=== PATIENT | male | born 1980 | race Caucasian/White ===

== ENCOUNTER 2017-09-05 06:18 | Inpatient (IN) ==
[~2017-09-05 06:18] MED LIST: DEXAMETHASONE 4 MG/1 ML VIAL IV ONE
[2017-09-05] MEDS ORDERED: FAMOTIDINE 20 MG TABLET PO ONE (07:37)
[2017-09-05] MEDS ORDERED: DIAZEPAM 5 MG TABLET PO ONE (07:38)
[2017-09-05] MEDS ORDERED: FAMOTIDINE 20 MG TABLET ONE (08:23)
[2017-09-05] MEDS ORDERED: DIAZEPAM 5 MG TABLET ONE (08:23)
[2017-09-05] MEDS ORDERED: LACTATED RINGERS 1,000 ML IV SCH (08:30)
[2017-09-05] MEDS ORDERED: MUPIROCIN 2% OINT 22 GM TUBE TOP ONE (11:01)
[2017-09-05] MEDS ORDERED: OXYMETAZOLINE 0.05% NASAL SPRAY 15 ML BOTTLE ONE (11:02)
[2017-09-05] MEDS ORDERED: LIDOCAINE 1%/EPI INJ 20 ML VIAL ONE (11:02)
[2017-09-05] MEDS ORDERED: PROPOFOL 1,000 MG/100 ML BOTTLE IV SCH (18:30)
[2017-09-05] MEDS ORDERED: ACETAMINOPHEN 500 MG TABLET PO PRN (19:07)
[2017-09-05] MEDS ORDERED: ONDANSETRON 4 MG/2 ML VIAL IV PRN (19:07)
[2017-09-05] MEDS ORDERED: diphenhydrAMINE 50 MG/1 ML VIAL IV PRN (19:07)
[2017-09-05] MEDS ORDERED: KETOROLAC 30 MG/1 ML VIAL IV PRN (19:07)
[2017-09-05 19:16] LABS: Apearance,Urine CLEAR (Clear); Bilirubin,Urine Negative (Negative); Blood, Urine Negative (Negative); Glucose,Urine (UA) Negative (Negative); Ketones,Urine Negative (Negative); Nitrite,Urine Negative (Negative); Protein,Urine Negative; RBC,Urine <1 /HPF (0-4); Urine Color Yellow (Yellow); Urine Specific Gravity 1.013 (1.001-1.035); Urine Urobilinogen < 2.0 EU/DL (0.2-1.0); WBC,Urine <1 /HPF (0-6)
[2017-09-05] MEDS ORDERED: MIDAZOLAM 2 MG/2 ML VIAL ONE (19:39)
[2017-09-05] MEDS ORDERED: PROPOFOL 200 MG/20 ML VIAL IV ONE (19:39)
[2017-09-05] MEDS ORDERED: SEVOFLURANE 1 UNIT/15 MINUTE INH ONE (19:39)
[2017-09-05] MEDS ORDERED: DEXAMETHASONE 10 MG/1 ML VIAL ONE (19:40)
[2017-09-05] MEDS ORDERED: MIDAZOLAM 10 MG/2 ML VIAL ONE (19:40)
[2017-09-05] MEDS ORDERED: fentaNYL 100 MCG/2 ML VIAL ONE (19:40)
[2017-09-05] MEDS ORDERED: SODIUM CHLORIDE 0.9% 250 ML IV ONE (19:41)
[2017-09-05] MEDS ORDERED: ROCURONIUM 100 MG/10 ML VIAL IV ONE (19:41)
[2017-09-05] MEDS ORDERED: SUCCINYLCHOLINE 200 MG/10 ML VIAL ONE (19:41)
[2017-09-05] MEDS ORDERED: PHENYLEPHRINE 10 MG/1 ML VIAL IV ONE (19:41)
[2017-09-05 19:59] LABS: ABG Base Excess 0.2 MMOL/L (-2.5-2.5); ABG HCO3 25.3 MMOL/L (20-26); ABG Oxygen Saturation 98.9 % (95-100); ABG PCO2 42.9 MM HG (35-48); ABG PH 7.389 (7.35-7.45); ABG PO2 170.7 MM HG (80-95); ABG TCO2 26.6 MMOL/L (23-27); Allen Test Positive; Pt O2 Delivery Device Ventilator
[2017-09-05] MEDS ORDERED: MIDAZOLAM 100 MG in SODIUM CHLORIDE 0.9% 80 ML IV SCH (21:30)
[2017-09-05] MEDS ORDERED: fentaNYL INJ 1,250 MCG in SODIUM CHLORIDE 0.9% 225 ML IV SCH (21:30)
[2017-09-05] MEDS: LACTATED RINGERS 1,000 ML IV SCH (21:57)
[2017-09-05] MEDS: ceFAZolin 1,000 MG in SYRINGE 1 EACH IV SCH (21:57)
[2017-09-05] MEDS: MESALAMINE 800 MG TABLET PO SCH (21:58)
[2017-09-05] MEDS: HALOPERIDOL 5 MG TABLET PO SCH (21:58)
[2017-09-05] MEDS: NORTRIPTYLINE 25 MG CAPSULE PO SCH (21:58)
[2017-09-05] MEDS: BENZTROPINE 1 MG TABLET PO SCH (21:58)
[2017-09-06] MEDS ORDERED: SODIUM CHLORIDE 0.9% 1,000 ML IV ONE (00:54)
[2017-09-06] MEDS ORDERED: PHENYLEPHRINE DRIP 40 MG/250 ML PREMIX IV SCH (01:00)
[2017-09-06 02:30] LABS: Basophils % 0.1 % (0.0-0.8); Eosinophils % 0.1 % (0.00-10.9); Hematocrit 41.1 VOL% (42.0-52.0); Hemoglobin 14.6 GM/DL (14.0-18.0); Immature Granulocytes % 0.6 %; Immature Granulocytes Absolute 0.09 #; Lymphocytes # 1.1 10*3/uL (1.4-4.0); Lymphocytes % 6.4 % (21.2-54.2); Mean Corpuscular HGB Conc 35.5 GM/DL (32-36); Mean Corpuscular Hemoglobin 32 PG (27-34); Mean Corpuscular Volume 88.6 FL (87-102); Mean Platelet Volume 10.3 FL (9.6-12.0); Monocytes # 0.9 10*3/uL (0.11-0.8); Monocytes % 5.3 % (1.7-12.7); Neutrophils # 14.3 10*3/uL (1.4-7.4); Neutrophils % 87.5 % (38.7-73.9); Platelet Count 211 T/CUMM (130-400); Red Blood Count 4.64 MC/CUMM (3.8-5.5); Red Cell Distribution Width 11.8 % (9.3-17.3); White Blood Count 16.3 T/CUMM (4-12)
[2017-09-06 02:34] LABS: Bilirubin,Total 1.2 MG/DL (0.2-1.0); Osmolality,Calculated 279.5 MOS/KG (273-304); Total Protein 6.3 G/DL (6.4-8.3)
[2017-09-06 03:20] LABS: ABG Base Excess -1.6 MMOL/L (-2.5-2.5); ABG HCO3 23.1 MMOL/L (20-26); ABG Oxygen Saturation 99.5 % (95-100); ABG PCO2 46.4 MM HG (35-48); ABG PH 7.335 (7.35-7.45); ABG TCO2 21.3 MMOL/L (23-27)
[2017-09-06] MEDS: DEXAMETHASONE 4 MG/1 ML VIAL IV SCH ×3 (04:53→20:59)
[2017-09-06] MEDS ORDERED: CALCIUM GLUCONATE 1,000 MG in SODIUM CHLORIDE 0.9% 100 ML IV ONE (06:44)
[2017-09-06 07:12] LABS: ABG Base Excess -0.4 MMOL/L (-2.5-2.5); ABG HCO3 24.1 MMOL/L (20-26); ABG Oxygen Saturation 99.2 % (95-100); ABG PCO2 43.9 MM HG (35-48); ABG PH 7.368 (7.35-7.45); ABG TCO2 21.5 MMOL/L (23-27); Allen Test Positive; Pt O2 Delivery Device Ventilator
[2017-09-06 08:07] LABS: ABG HCO3 25.7 MMOL/L (20-26); ABG Oxygen Saturation 98.2 % (95-100); ABG PCO2 45.6 MM HG (35-48); ABG PH 7.369 (7.35-7.45); ABG PO2 118.5 MM HG (80-95); ABG TCO2 27.1 MMOL/L (23-27)
[2017-09-06] MEDS: ceFAZolin 1,000 MG in SYRINGE 1 EACH IV SCH ×2 (08:37→21:00)
[2017-09-06] MEDS: LACTATED RINGERS 1,000 ML IV SCH ×3 (08:38→21:00)
[2017-09-06] MEDS: CALCIUM (CARBONATE)/VITAMIN D 600 MG-400 UNIT TABLET PO SCH ×2 (12:16→20:59)
[2017-09-06] MEDS: MESALAMINE 800 MG TABLET PO SCH ×3 (12:16→21:00)
[2017-09-06] MEDS: CALCITRIOL 0.5 MCG CAPSULE PO SCH (12:17)
[2017-09-06] MEDS: MAGNESIUM GLUCONATE 500 MG TABLET PO SCH ×2 (12:17→21:01)
[2017-09-06] MEDS: NORTRIPTYLINE 25 MG CAPSULE PO SCH (20:59)
[2017-09-06] MEDS: BENZTROPINE 1 MG TABLET PO SCH (21:00)
[2017-09-06] MEDS: HALOPERIDOL 5 MG TABLET PO SCH (21:01)
[2017-09-07] MEDS: DEXAMETHASONE 4 MG/1 ML VIAL IV SCH (04:43)
[2017-09-07 05:53] LABS: Calcium 7.9 MG/DL (8.5-10.1)
[2017-09-07] MEDS: LACTATED RINGERS 1,000 ML IV SCH ×2 (09:27→22:23)
[2017-09-07] MEDS: MAGNESIUM GLUCONATE 500 MG TABLET PO SCH ×2 (09:28→22:22)
[2017-09-07] MEDS: CALCIUM (CARBONATE)/VITAMIN D 600 MG-400 UNIT TABLET PO SCH ×3 (09:28→22:22)
[2017-09-07] MEDS: CALCITRIOL 0.5 MCG CAPSULE PO SCH (09:29)
[2017-09-07] MEDS: MESALAMINE 800 MG TABLET PO SCH ×3 (09:29→22:22)
[2017-09-07] MEDS: ceFAZolin 1,000 MG in SYRINGE 1 EACH IV SCH ×2 (09:30→22:22)
[2017-09-07] MEDS ORDERED: CALCITRIOL 0.5 MCG CAPSULE PO SCH (12:42)
[2017-09-07] MEDS: BENZTROPINE 1 MG TABLET PO SCH (22:22)
[2017-09-07] MEDS: HALOPERIDOL 5 MG TABLET PO SCH (22:22)
[2017-09-07] MEDS: NORTRIPTYLINE 25 MG CAPSULE PO SCH (22:22)
[2017-09-08] MEDS ORDERED: LEVOTHYROXINE 100 MCG TABLET PO SCH (06:30)
[2017-09-08] MEDS: CALCIUM (CARBONATE)/VITAMIN D 600 MG-400 UNIT TABLET PO SCH (09:19)
[2017-09-08] MEDS: MAGNESIUM GLUCONATE 500 MG TABLET PO SCH (09:19)
[2017-09-08] MEDS: MESALAMINE 800 MG TABLET PO SCH (09:19)
[2017-09-08] MEDS: ceFAZolin 1,000 MG in SYRINGE 1 EACH IV SCH (09:20)
[2017-09-08 09:34] LABS: Calcium 8.2 MG/DL (8.5-10.1)
[2017-09-08 12:06] VITALS: BP 121/71
== END 2017-09-08 13:00 | DRG 626 ==
LOC: N.OR 06:18 → N.SDSINP 06:21 → N.CC 19:07 → N.3W 09-06 17:31
PROVIDERS: ADMIT Otolaryngology; ATTEND Otolaryngology